=== PATIENT | male | born 1960 | race Caucasian/White ===

== ENCOUNTER 2019-09-16 18:24 | Emergency (ER) | payer MEDICAID, OTHER ==
[~2019-09-16] VITALS: Ht 167.6 cm; Wt 70.3 kg
[2019-09-16] MEDS ORDERED: LIDOCAINE W/ EPINEPHRINE 2% INJ 20ML VIAL ID ONE (22:00)
[2019-09-16] MEDS ORDERED: HYDROcodone-ACET 5/325MG TAB PO ONE (22:45)
[2019-09-16] MEDS ORDERED: IBUPROFEN 800 MG TAB PO ONE (23:15)
[2019-09-16] MEDS ORDERED: cefTRIAXone W LIDOCAINE 1 GM IM IM ONE (23:45)
[2019-09-16 23:49] VITALS: BP 131/85
[2019-09-16] MEDS ORDERED: cefTRIAXone SOD 1,000 MG VL ONE (23:56)
== END 2019-09-17 00:03 | disposition home or self-care (01) ==
LOC: ER 18:24
DX: S01.82XA Laceration with foreign body of other part of head, initial encounter (principal); S04.32XA Injury of trigeminal nerve, left side, initial encounter; W18.00XA Striking against unspecified object with subsequent fall, initial encounter; Y93.89 Activity, other specified; Y92.89 Other specified places as the place of occurrence of the external cause; Y99.8 Other external cause status
CPT/HCPCS: 12052; 70450; 70486; 96372; 99285; J0696